=== PATIENT | female | born 1995 | race African-American/Black ===

== ENCOUNTER 2016-06-06 20:27 | Emergency (ER) | payer OTHER ==
[~2016-06-06] VITALS: Ht 160 cm; Wt 78.3 kg
[~2016-06-06 20:27] MED LIST: ACYCLOVIR400 MG PO; ACYCLOVIR800 MG PO; ADDERALL XR 3030 MG PO; ADDERALL30 MG PO; AMOXICILLIN500 MG PO; ATIVAN0.5 MG PO; CIPRO500 MG PO; CLEOCIN300 MG PO; HYDROCODON-ACE1 EAC7 PO; IBUPROFEN800 MG PO; KEFLEX500 MG PO; LABETALOL HCL100 MG PO; LEVAQUIN250 MG PO; LORAZEPAM0.5 MG PO; LORTAB 5-325 M1 EACH PO; Lab; METFORMIN HCL1000 MG PO; METOCLOPRAMIDE10 MG PO; MOTRIN600 MG PO; MOTRIN800 MG PO; NAPROSYN500 MG PO; NAPROXEN500 MG PO; NORCO 5/3251 TABLET PO; NOVOLIN N100 UNITS/ SC; NOVOLOG MI100 UNIT/4 SC; PREDNISONE20 MG PO; PRENATAL TABLE1 EAC3 PO; PROMETHAZINE HC25 M1 PO; PYRIDIUM200 MG PO; SERTRALINE HCL25 MG PO; TYLENOL WITH C1 EACH PO; ULTRAM50 MG PO; XANAX0.5 MG PO; ZOFRAN ODT4 MG PO; ZOFRAN4 MG PO; ZOLOFT100 MG PO; ZOLOFT25 MG PO; ZOLOFT50 MG PO; no home
[2016-06-06 21:24] LABS: HEMATOCRIT 38.6 % (36.0-46.0); MCH 28.8 PG (29.0-34.0); MCHC 32.9 G/DL (30.0-36.0); MCV 87.5 FL (83-99); MEAN PLAT.VOLUME 9.4 uM^3 (9.5-12.4); PLATELET COUNT 271 K/uL (156-360); RBC DIS.WIDTH-CV 13.5 % (11.8-14.6); RBC DIS.WIDTH-SD 42.5 % (39-53); RED BLOOD COUNT 4.41 M/uL (3.80-5.20); WHITE BLOOD COUNT 6.2 K/uL (4.1-10.2)
[2016-06-06 21:33] LABS: CHLORIDE 102 mEq/L (99-109); POTASSIUM 4.2 mEq/L (3.7-5.4); SODIUM 137 mEq/L (136-147)
[2016-06-06 21:34] LABS: GLUCOSE 125 mg/dL (70-99)
[2016-06-06 21:36] LABS: ANION GAP 11 MEQ/L (2-14)
[2016-06-06 21:38] LABS: GFR ESTIMATE (CALCULATED) > 59 mL/min/
[2016-06-06 21:39] LABS: UREA NITROGEN (BUN) 14 mg/dL (9-23)
[2016-06-06 21:45] LABS: TROP-I INTERPRETATION NEGATIVE; TROPONIN-I < 0.01 ng/mL (0.0-0.30)
[2016-06-06] MEDS ORDERED: MOTRIN800 MG PO (23:07)
[2016-06-06 23:26] VITALS: BP 99/42
== END 2016-06-06 23:30 | disposition home or self-care (01) ==
LOC: EME 20:27
DX: R07.89 Other chest pain (principal); F90.9 Attention-deficit hyperactivity disorder, unspecified type; Z87.440 Personal history of urinary (tract) infections
CPT/HCPCS: 71020; 80048; 84484; 85027; 93005; 99281; 99285; J1885

== ENCOUNTER 2016-06-12 03:28 | Emergency (ER) | payer OTHER ==
[~2016-06-12] VITALS: Ht 160 cm; Wt 79.2 kg
[2016-06-12 03:57] LABS: HEMATOCRIT 36.3 % (36.0-46.0); MCH 29.5 PG (29.0-34.0); MCHC 33.9 G/DL (30.0-36.0); MCV 87.1 FL (83-99); MEAN PLAT.VOLUME 9.2 uM^3 (9.5-12.4); PLATELET COUNT 265 K/uL (156-360); RBC DIS.WIDTH-CV 13.6 % (11.8-14.6); RBC DIS.WIDTH-SD 42.1 % (39-53); RED BLOOD COUNT 4.17 M/uL (3.80-5.20); WHITE BLOOD COUNT 5.6 K/uL (4.1-10.2)
[2016-06-12 04:19] LABS: CHLORIDE 104 mEq/L (99-109); POTASSIUM 4.1 mEq/L (3.7-5.4); SODIUM 138 mEq/L (136-147)
[2016-06-12 04:21] LABS: GLUCOSE 79 mg/dL (70-99)
[2016-06-12 04:22] LABS: ANION GAP 8 MEQ/L (2-14)
[2016-06-12 04:24] LABS: GFR ESTIMATE (CALCULATED) > 59 mL/min/
[2016-06-12 04:25] LABS: UREA NITROGEN (BUN) 13 mg/dL (9-23)
[2016-06-12 04:31] LABS: TROP-I INTERPRETATION NEGATIVE; TROPONIN-I < 0.01 ng/mL (0.0-0.30)
[2016-06-12 05:17] VITALS: BP 110/62
== END 2016-06-12 05:18 | disposition home or self-care (01) ==
LOC: EME 03:28
PROVIDERS: Emergency Medicine
DX: R07.9 Chest pain, unspecified (principal); F90.9 Attention-deficit hyperactivity disorder, unspecified type; Z87.440 Personal history of urinary (tract) infections
CPT/HCPCS: 71020; 80048; 83880; 84484; 85027; 86850; 86900; 86901; 93005; 99281; 99284

== ENCOUNTER 2016-06-18 15:53 | Emergency (ER) | payer OTHER ==
[~2016-06-18] VITALS: Ht 160 cm; Wt 79.4 kg
[2016-06-18 16:45] LABS: ADD MIUA? NO; BILIRUBIN NEGATIVE; BLOOD NEGATIVE; COLOR YELLOW ((YELLOW)); GLUCOSE (STRIP) NEGATIVE; KETONES NEGATIVE; LEUKOCYTES NEGATIVE; NITRITE NEGATIVE; PH, URINE 6.5 (5-8); PROTEIN (STRIP) NEGATIVE; SPECIFIC GRAVITY 1.017 (1.000-1.030); UCUL ADDED? NO
[2016-06-18 16:51] LABS: HEMATOCRIT 37.5 % (36.0-46.0); MCHC 33.9 G/DL (30.0-36.0); MCV 85.6 FL (83-99); MEAN PLAT.VOLUME 9.5 uM^3 (9.5-12.4); PLATELET COUNT 285 K/uL (156-360); RBC DIS.WIDTH-CV 13.7 % (11.8-14.6); RBC DIS.WIDTH-SD 42.4 % (39-53); RED BLOOD COUNT 4.38 M/uL (3.80-5.20); WHITE BLOOD COUNT 5.6 K/uL (4.1-10.2)
[2016-06-18 17:03] LABS: CHLORIDE 105 mEq/L (99-109); POTASSIUM 3.9 mEq/L (3.7-5.4); SODIUM 138 mEq/L (136-147)
[2016-06-18 17:05] LABS: GLUCOSE 80 mg/dL (70-99)
[2016-06-18 17:07] LABS: ANION GAP 10 MEQ/L (2-14)
[2016-06-18 17:09] LABS: ALKALINE PHOSPHATASE 65 IU/L (3-129); GFR ESTIMATE (CALCULATED) > 59 mL/min/
[2016-06-18 17:10] LABS: UREA NITROGEN (BUN) 10 mg/dL (9-23)
[2016-06-18 17:18] LABS: QUANTITATIVE HCG < 4.0 MIU/ML; TOTAL BILIRUBIN 0.3 mg/dL (0.0-1.0)
[2016-06-18 19:18] VITALS: BP 125/78
== END 2016-06-18 19:18 | disposition home or self-care (01) ==
LOC: EME 15:53
DX: R10.2 Pelvic and perineal pain (principal); Z86.19 Personal history of other infectious and parasitic diseases
CPT/HCPCS: 80053; 81003; 84702; 85027; 99281; 99284

== ENCOUNTER 2016-07-02 13:46 | Emergency (ER) | payer OTHER ==
[~2016-07-02] VITALS: Ht 160 cm; Wt 75.4 kg
[2016-07-02] MEDS ORDERED: ATIVAN2 MG PO (14:13)
[2016-07-02 14:42] LABS: HEMATOCRIT 40.1 % (36.0-46.0); MCH 29.2 PG (29.0-34.0); MCHC 33.7 G/DL (30.0-36.0); MCV 86.6 FL (83-99); MEAN PLAT.VOLUME 9.5 uM^3 (9.5-12.4); PLATELET COUNT 309 K/uL (156-360); RBC DIS.WIDTH-CV 13.9 % (11.8-14.6); RED BLOOD COUNT 4.63 M/uL (3.80-5.20); WHITE BLOOD COUNT 5.5 K/uL (4.1-10.2)
[2016-07-02 14:52] LABS: CHLORIDE 105 mEq/L (99-109); SODIUM 139 mEq/L (136-147)
[2016-07-02 14:54] LABS: GLUCOSE 97 mg/dL (70-99)
[2016-07-02 14:55] LABS: ANION GAP 7 MEQ/L (2-14)
[2016-07-02 14:56] LABS: TOTAL BILIRUBIN 0.3 mg/dL (0.0-1.0)
[2016-07-02 14:57] LABS: ALKALINE PHOSPHATASE 66 IU/L (3-129)
[2016-07-02 14:58] LABS: GFR ESTIMATE (CALCULATED) > 59 mL/min/
[2016-07-02 14:59] LABS: UREA NITROGEN (BUN) 10 mg/dL (9-23)
[2016-07-02 15:01] LABS: LIPASE 16 U/L (1.0-51.0)
[2016-07-02 15:51] LABS: QUANTITATIVE HCG < 4.0 MIU/ML
[2016-07-02 16:17] LABS: ADD MIUA? YES; BILIRUBIN NEGATIVE; BLOOD MODERATE; COLOR YELLOW ((YELLOW)); GLUCOSE (STRIP) NEGATIVE; KETONES 5; LEUKOCYTES MODERATE; NITRITE NEGATIVE; PROTEIN (STRIP) 100; SPECIFIC GRAVITY 1.035 (1.000-1.030); UROBILINOGEN 0.2 MG/DL (0.2-1.0)
[2016-07-02 16:26] LABS: BACTERIA NONE SEEN /HPF; EPITHELIAL CELLS 2+ /HPF; MUCUS 4+ /LPF; RED BLOOD CELLS TNTC /HPF (0-5); UCUL ADDED? YES; WHITE BLOOD CELLS TNTC /HPF (0-5)
[2016-07-02] MEDS ORDERED: CIPRO500 MG PO (17:05)
[2016-07-02 17:18] VITALS: BP 113/67
== END 2016-07-02 17:19 | disposition home or self-care (01) ==
LOC: EME 13:46
PROVIDERS: Nurse Practitioner Family
DX: N39.0 Urinary tract infection, site not specified (principal); B96.20 Unspecified Escherichia coli [E. coli] as the cause of diseases classified elsewhere; F31.9 Bipolar disorder, unspecified; F32.9 Major depressive disorder, single episode, unspecified; R01.1 Cardiac murmur, unspecified; Z87.891 Personal history of nicotine dependence
CPT/HCPCS: 74177; 80053; 81003; 83690; 84702; 85027; 87077; 87086; 87186; 99281; 99285; J2405; J3010; J7030

== ENCOUNTER 2016-07-23 13:59 | Emergency (ER) | payer OTHER ==
[~2016-07-23] VITALS: Ht 160 cm; Wt 78.6 kg
[~2016-07-23 13:59] MED LIST changes: +ATIVAN2 MG PO
[2016-07-23 14:06] VITALS: BP 124/65
[2016-07-23 14:55] LABS: HEMATOCRIT 36.8 % (36.0-46.0); MCH 28.8 PG (29.0-34.0); MCHC 33.4 G/DL (30.0-36.0); MCV 86.2 FL (83-99); MEAN PLAT.VOLUME 9.4 uM^3 (9.5-12.4); PLATELET COUNT 282 K/uL (156-360); RBC DIS.WIDTH-SD 43.2 % (39-53); RED BLOOD COUNT 4.27 M/uL (3.80-5.20); WHITE BLOOD COUNT 4.4 K/uL (4.1-10.2)
[2016-07-23 15:03] LABS: CHLORIDE 106 mEq/L (99-109); POTASSIUM 4.1 mEq/L (3.7-5.4); SODIUM 140 mEq/L (136-147)
[2016-07-23 15:06] LABS: GLUCOSE 78 mg/dL (70-99)
[2016-07-23 15:07] LABS: ANION GAP 7 MEQ/L (2-14)
[2016-07-23 15:08] LABS: TOTAL BILIRUBIN 0.3 mg/dL (0.0-1.0)
[2016-07-23 15:09] LABS: ALKALINE PHOSPHATASE 57 IU/L (3-129); GFR ESTIMATE (CALCULATED) > 59 mL/min/
[2016-07-23 15:10] LABS: UREA NITROGEN (BUN) 11 mg/dL (9-23)
[2016-07-23 15:14] LABS: ADD MIUA? YES; BILIRUBIN NEGATIVE; BLOOD NEGATIVE; COLOR YELLOW ((YELLOW)); GLUCOSE (STRIP) NEGATIVE; KETONES NEGATIVE; LEUKOCYTES NEGATIVE; NITRITE NEGATIVE; PROTEIN (STRIP) NEGATIVE; SPECIFIC GRAVITY 1.023 (1.000-1.030); UROBILINOGEN 0.2 MG/DL (0.2-1.0)
[2016-07-23 15:20] LABS: BACTERIA NONE SEEN /HPF; EPITHELIAL CELLS 1+ /HPF; MUCUS TRACE /LPF; RED BLOOD CELLS NONE SEEN /HPF (0-5); UCUL ADDED? NO; WHITE BLOOD CELLS 0-5 /HPF (0-5)
[2016-07-23 15:21] LABS: QUANTITATIVE HCG < 4.0 MIU/ML
== END 2016-07-23 17:51 | disposition left against medical advice (07) ==
LOC: EME 13:59
DX: R10.31 Right lower quadrant pain (principal); R11.2 Nausea with vomiting, unspecified; M54.9 Dorsalgia, unspecified; Z87.440 Personal history of urinary (tract) infections; Z87.891 Personal history of nicotine dependence
CPT/HCPCS: 80053; 81003; 84702; 85027; 87651 90; 99281; 99284

== ENCOUNTER 2016-07-28 07:56 | Emergency (ER) | payer OTHER ==
[~2016-07-28] VITALS: Ht 160 cm; Wt 78.0 kg
[2016-07-28 08:41] LABS: HEMATOCRIT 38.1 % (36.0-46.0); LYMPHOCYTE COUNT 1.9 K/uL (1.0-2.8); MCH 28.8 PG (29.0-34.0); MCHC 33.1 G/DL (30.0-36.0); MEAN PLAT.VOLUME 9.1 uM^3 (9.5-12.4); MONOCYTE (%) 13.6 % (3-12); MONOCYTE COUNT 0.5 K/uL (0-0.8); NEUTROPHIL (%) 36.4 % (45-76); NEUTROPHIL COUNT 1.4 K/uL (1.8-6.4); PLATELET COUNT 264 K/uL (156-360); RBC DIS.WIDTH-CV 14.1 % (11.8-14.6); RBC DIS.WIDTH-SD 44.2 % (39-53); RED BLOOD COUNT 4.38 M/uL (3.80-5.20); WHITE BLOOD COUNT 3.9 K/uL (4.1-10.2)
[2016-07-28 08:52] LABS: CHLORIDE 103 mEq/L (99-109); POTASSIUM 3.9 mEq/L (3.7-5.4); SODIUM 136 mEq/L (136-147)
[2016-07-28 08:54] LABS: GLUCOSE 87 mg/dL (70-99)
[2016-07-28 08:55] LABS: ANION GAP 7 MEQ/L (2-14)
[2016-07-28 08:56] LABS: TOTAL BILIRUBIN 0.3 mg/dL (0.0-1.0)
[2016-07-28 08:57] LABS: ALKALINE PHOSPHATASE 62 IU/L (3-129)
[2016-07-28 08:58] LABS: GFR ESTIMATE (CALCULATED) > 59 mL/min/
[2016-07-28 08:59] LABS: UREA NITROGEN (BUN) 14 mg/dL (9-23)
[2016-07-28 09:01] LABS: LIPASE 21 U/L (1.0-51.0)
[2016-07-28 09:07] LABS: QUANTITATIVE HCG < 4.0 MIU/ML
[2016-07-28 09:24] LABS: INFLUENZA A VIRAL ANTIGEN NEGATIVE; INFLUENZA B VIRAL ANTIGEN NEGATIVE
[2016-07-28] MEDS ORDERED: MOTRIN800 MG PO (11:58)
[2016-07-28 12:02] VITALS: BP 129/65
== END 2016-07-28 12:23 | disposition home or self-care (01) ==
LOC: EME 07:56
PROVIDERS: Emergency Medicine
DX: J06.9 Acute upper respiratory infection, unspecified (principal)
CPT/HCPCS: 71020; 80053; 83690; 84702; 85025; 87502; 87651 90; 99281; 99284; J1100

== ENCOUNTER 2016-07-31 11:47 | Emergency (ER) | payer OTHER ==
[~2016-07-31] VITALS: Ht 160 cm; Wt 77.0 kg
[2016-07-31 14:14] LABS: EOSINOPHIL (%) 0.4 % (0-5); HEMATOCRIT 39.7 % (36.0-46.0); IMMATURE GRANULOCYTE (%) 0.1 % (0.0-0.7); INSTRUMENT ABS NEUTROPHIL CT 4.4 K/uL; LYMPHOCYTE COUNT 2.2 K/uL (1.0-2.8); MCH 29.3 PG (29.0-34.0); MCV 88.8 FL (83-99); MEAN PLAT.VOLUME 9.2 uM^3 (9.5-12.4); MONOCYTE COUNT 0.6 K/uL (0-0.8); NEUTROPHIL (%) 60.3 % (45-76); NEUTROPHIL COUNT 4.4 K/uL (1.8-6.4); PLATELET COUNT 307 K/uL (156-360); RBC DIS.WIDTH-CV 14.2 % (11.8-14.6); RBC DIS.WIDTH-SD 46.5 % (39-53); RED BLOOD COUNT 4.47 M/uL (3.80-5.20)
[2016-07-31 14:17] LABS: CHLORIDE 103 mEq/L (99-109); POTASSIUM 3.6 mEq/L (3.7-5.4); SODIUM 137 mEq/L (136-147)
[2016-07-31 14:19] LABS: GLUCOSE 90 mg/dL (70-99)
[2016-07-31 14:20] LABS: ANION GAP 9 MEQ/L (2-14)
[2016-07-31 14:21] LABS: WHITE BLOOD COUNT 7.2 K/uL (4.1-10.2)
[2016-07-31 14:23] LABS: GFR ESTIMATE (CALCULATED) > 59 mL/min/; UREA NITROGEN (BUN) 12 mg/dL (9-23)
[2016-07-31 14:31] LABS: QUANTITATIVE HCG < 4.0 MIU/ML
[2016-07-31] MEDS ORDERED: TOBREX5 ML RIGHT EYE (14:59)
[2016-07-31 15:08] VITALS: BP 114/63
== END 2016-07-31 15:09 | disposition home or self-care (01) ==
LOC: EME 11:47
PROVIDERS: Emergency Medicine
DX: H10.9 Unspecified conjunctivitis (principal); N93.0 Postcoital and contact bleeding; F17.200 Nicotine dependence, unspecified, uncomplicated
CPT/HCPCS: 80048; 84702; 85025; 99281; 99283

== ENCOUNTER 2016-08-07 18:21 | Emergency (ER) | payer OTHER ==
[~2016-08-07] VITALS: Ht 160 cm; Wt 78.3 kg
[~2016-08-07 18:21] MED LIST changes: +TOBREX5 ML RIGHT EYE
[2016-08-07 19:14] LABS: ADD MIUA? NO; BILIRUBIN NEGATIVE; BLOOD NEGATIVE; COLOR YELLOW ((YELLOW)); GLUCOSE (STRIP) NEGATIVE; KETONES NEGATIVE; LEUKOCYTES NEGATIVE; NITRITE NEGATIVE; PROTEIN (STRIP) NEGATIVE; SPECIFIC GRAVITY 1.027 (1.000-1.030); UCUL ADDED? NO; UROBILINOGEN 0.2 MG/DL (0.2-1.0)
[2016-08-07 19:14] LABS: HEMATOCRIT 39.4 % (36.0-46.0); MCH 28.7 PG (29.0-34.0); MCHC 32.7 G/DL (30.0-36.0); MCV 87.6 FL (83-99); MEAN PLAT.VOLUME 9.3 uM^3 (9.5-12.4); PLATELET COUNT 342 K/uL (156-360); RBC DIS.WIDTH-CV 13.9 % (11.8-14.6); RBC DIS.WIDTH-SD 44.4 % (39-53); WHITE BLOOD COUNT 5.9 K/uL (4.1-10.2)
[2016-08-07 20:13] VITALS: BP 126/83
== END 2016-08-07 20:13 | disposition home or self-care (01) ==
LOC: EME 18:21
DX: O26.891 Other specified pregnancy related conditions, first trimester (principal); R10.2 Pelvic and perineal pain; O26.851 Spotting complicating pregnancy, first trimester; O99.331 Smoking (tobacco) complicating pregnancy, first trimester; F17.200 Nicotine dependence, unspecified, uncomplicated; Z3A.01 Less than 8 weeks gestation of pregnancy
CPT/HCPCS: 81003; 84702; 85027; 99281; 99284

== ENCOUNTER 2016-08-10 19:57 | Emergency (ER) | payer OTHER ==
[~2016-08-10] VITALS: Ht 160 cm; Wt 79.4 kg
[2016-08-10 20:59] LABS: HEMATOCRIT 35.8 % (36.0-46.0); MCH 28.7 PG (29.0-34.0); MCHC 32.7 G/DL (30.0-36.0); MCV 87.7 FL (83-99); MEAN PLAT.VOLUME 9.2 uM^3 (9.5-12.4); PLATELET COUNT 286 K/uL (156-360); RBC DIS.WIDTH-CV 13.9 % (11.8-14.6); RBC DIS.WIDTH-SD 44.8 % (39-53); RED BLOOD COUNT 4.08 M/uL (3.80-5.20); WHITE BLOOD COUNT 5.7 K/uL (4.1-10.2)
[2016-08-10 21:11] LABS: CHLORIDE 105 mEq/L (99-109); POTASSIUM 3.6 mEq/L (3.7-5.4); SODIUM 137 mEq/L (136-147)
[2016-08-10 21:13] LABS: GLUCOSE 87 mg/dL (70-99)
[2016-08-10 21:14] LABS: ANION GAP 6 MEQ/L (2-14)
[2016-08-10 21:15] LABS: TOTAL BILIRUBIN 0.2 mg/dL (0.0-1.0)
[2016-08-10 21:16] LABS: ALKALINE PHOSPHATASE 52 IU/L (3-129)
[2016-08-10 21:17] LABS: GFR ESTIMATE (CALCULATED) > 59 mL/min/
[2016-08-10 21:18] LABS: UREA NITROGEN (BUN) 9 mg/dL (9-23)
[2016-08-10 23:17] LABS: BILIRUBIN NEGATIVE; BLOOD NEGATIVE; COLOR YELLOW ((YELLOW)); GLUCOSE (STRIP) NEGATIVE; KETONES NEGATIVE; LEUKOCYTES NEGATIVE; NITRITE NEGATIVE; PROTEIN (STRIP) NEGATIVE; SPECIFIC GRAVITY 1.025 (1.000-1.030); UROBILINOGEN 0.2 MG/DL (0.2-1.0)
[2016-08-10 23:21] LABS: ADD MIUA? NO; UCUL ADDED? NO
[2016-08-10 23:43] VITALS: BP 127/82
== END 2016-08-10 23:44 | disposition home or self-care (01) ==
LOC: EME 19:57
DX: O99.89 Other specified diseases and conditions complicating pregnancy, childbirth and the puerperium (principal); R10.31 Right lower quadrant pain; O99.341 Other mental disorders complicating pregnancy, first trimester; F31.9 Bipolar disorder, unspecified; F41.9 Anxiety disorder, unspecified; F43.10 Post-traumatic stress disorder, unspecified; O99.331 Smoking (tobacco) complicating pregnancy, first trimester; F17.200 Nicotine dependence, unspecified, uncomplicated; Z3A.01 Less than 8 weeks gestation of pregnancy
CPT/HCPCS: 76801; 80053; 81003; 84702; 85027; 99281; 99284

== ENCOUNTER 2016-09-21 03:08 | Emergency (ER) | payer OTHER ==
[~2016-09-21] VITALS: Ht 160 cm; Wt 77.2 kg
[2016-09-21 04:38] VITALS: BP 137/73
== END 2016-09-21 04:43 | disposition home or self-care (01) ==
LOC: EME 03:08
DX: O9A.211 Injury, poisoning and certain other consequences of external causes complicating pregnancy, first trimester (principal); S63.501A Unspecified sprain of right wrist, initial encounter; Y04.2XXA Assault by strike against or bumped into by another person, initial encounter; O99.89 Other specified diseases and conditions complicating pregnancy, childbirth and the puerperium; R10.9 Unspecified abdominal pain; Z3A.10 10 weeks gestation of pregnancy
CPT/HCPCS: 73110; 99281; 99284

== ENCOUNTER 2017-03-05 11:12 | Emergency (ER) | payer OTHER ==
[~2017-03-05] VITALS: Ht 160 cm; Wt 84.5 kg
[2017-03-05 13:51] LABS: INFLUENZA A VIRAL ANTIGEN NEGATIVE; INFLUENZA B VIRAL ANTIGEN NEGATIVE
[2017-03-05] MEDS ORDERED: ZITHROMAX Z-PA250 MG PO (14:32)
[2017-03-05] MEDS ORDERED: PROVENTIL HFA6.7 GM IH (14:32)
[2017-03-05] MEDS ORDERED: ROBITUSSIN DM118 ML PO (14:32)
[2017-03-05 14:53] VITALS: BP 124/72
== END 2017-03-05 14:53 | disposition home or self-care (01) ==
LOC: EME 11:12
PROVIDERS: Emergency Medicine
DX: O99.513 Diseases of the respiratory system complicating pregnancy, third trimester (principal); J06.9 Acute upper respiratory infection, unspecified; J40 Bronchitis, not specified as acute or chronic; Z3A.34 34 weeks gestation of pregnancy
CPT/HCPCS: 87502; 99281; 99284

== ENCOUNTER 2017-03-08 21:29 | Emergency (ER) | payer OTHER ==
[~2017-03-08] VITALS: Ht 160 cm; Wt 84.6 kg
[~2017-03-08 21:29] MED LIST changes: +PROVENTIL HFA6.7 GM IH; +ROBITUSSIN DM118 ML PO; +ZITHROMAX Z-PA250 MG PO
[2017-03-08] MEDS ORDERED: CEFDINIR300 MG PO (22:23)
[2017-03-08 22:35] VITALS: BP 98/56
== END 2017-03-08 22:36 | disposition home or self-care (01) ==
LOC: EME 21:29
DX: R07.9 Chest pain, unspecified (principal); T36.3X5A Adverse effect of macrolides, initial encounter; J40 Bronchitis, not specified as acute or chronic; F32.9 Major depressive disorder, single episode, unspecified; F41.9 Anxiety disorder, unspecified; F90.9 Attention-deficit hyperactivity disorder, unspecified type; F43.10 Post-traumatic stress disorder, unspecified; Z87.440 Personal history of urinary (tract) infections; Z87.891 Personal history of nicotine dependence
CPT/HCPCS: 99281; 99284

== ENCOUNTER 2017-03-13 15:45 | Outpatient (CLI) | payer OTHER ==
[~2017-03-13] VITALS: Ht 160 cm; Wt 85.0 kg
[~2017-03-13 15:45] MED LIST changes: +CEFDINIR300 MG PO
[2017-03-13 15:58] VITALS: BP 133/81
[2017-03-13] MEDS ORDERED: IRON325 M1 PO (16:27)
[2017-03-13] MEDS ORDERED: VALTREX50 MG/ML PO (16:28)
[2017-03-13 18:49] VITALS: BP 116/55
== END 2017-03-13 19:00 | disposition home or self-care (01) ==
LOC: LDRP-OP → 2WEST 15:47 → LDRP-OP 05-14 14:29
DX: O26.893 Other specified pregnancy related conditions, third trimester (principal); R06.02 Shortness of breath; R07.89 Other chest pain; M54.9 Dorsalgia, unspecified; Z86.19 Personal history of other infectious and parasitic diseases; O99.343 Other mental disorders complicating pregnancy, third trimester; F43.10 Post-traumatic stress disorder, unspecified; O98.513 Other viral diseases complicating pregnancy, third trimester; B00.9 Herpesviral infection, unspecified; Z3A.35 35 weeks gestation of pregnancy; Z87.891 Personal history of nicotine dependence
CPT/HCPCS: 59025; 81003; 87086; G0378; J0702; J7120

== ENCOUNTER 2017-03-14 16:39 | Outpatient (CLI) | payer OTHER ==
[~2017-03-14 16:39] MED LIST changes: +IRON325 M1 PO; +VALTREX50 MG/ML PO
[2017-03-14 16:55] VITALS: BP 112/59
== END 2017-03-14 18:05 | disposition home or self-care (01) ==
LOC: LDRP-OP 16:39 → 2WEST 16:40 → LDRP-OP 21:53
DX: O26.893 Other specified pregnancy related conditions, third trimester (principal); Z3A.35 35 weeks gestation of pregnancy
CPT/HCPCS: 59025; G0378; J0702

== ENCOUNTER 2017-03-15 14:38 | Outpatient (CLI) | payer OTHER ==
[2017-03-15 14:59] VITALS: BP 126/61
== END 2017-03-15 17:35 | disposition home or self-care (01) ==
LOC: LDRP-OP 14:38 → 2WEST 14:40 → LDRP-OP 05-14 18:32
DX: O26.893 Other specified pregnancy related conditions, third trimester (principal); Z3A.35 35 weeks gestation of pregnancy; R10.9 Unspecified abdominal pain; R19.7 Diarrhea, unspecified; O99.343 Other mental disorders complicating pregnancy, third trimester; F41.8 Other specified anxiety disorders; Z87.891 Personal history of nicotine dependence
CPT/HCPCS: 59025; 87081; G0378

== ENCOUNTER 2017-04-07 07:15 | Inpatient (IN) | payer OTHER ==
[2017-04-07] VITALS (33 sets, daily range): BP systolic 108–156; BP diastolic 55–87
[~2017-04-07] VITALS: Ht 160 cm; Wt 87.0 kg
[2017-04-07 09:20] LABS: EOSINOPHIL (%) 1.2 % (0-5); EOSINOPHIL COUNT 0.1 K/uL (0-0.3); HEMATOCRIT 30.3 % (36.0-46.0); IMMATURE GRANULOCYTE (%) 0.2 % (0.0-0.7); INSTRUMENT ABS NEUTROPHIL CT 2.8 K/uL; LYMPHOCYTE COUNT 1.7 K/uL (1.0-2.8); MCHC 33.7 G/DL (30.0-36.0); MCV 89.1 FL (83-99); MEAN PLAT.VOLUME 10.1 uM^3 (9.5-12.4); MONOCYTE (%) 8.3 % (3-12); MONOCYTE COUNT 0.4 K/uL (0-0.8); NEUTROPHIL (%) 55.8 % (45-76); NEUTROPHIL COUNT 2.8 K/uL (1.8-6.4); RBC DIS.WIDTH-CV 12.8 % (11.8-14.6); RBC DIS.WIDTH-SD 41.1 % (39-53)
[2017-04-07 09:25] LABS: PLATELET COUNT 192 K/uL (156-360)
[2017-04-08 07:18] LABS: EOSINOPHIL (%) 0.6 % (0-5); EOSINOPHIL COUNT 0.1 K/uL (0-0.3); HEMATOCRIT 28.1 % (36.0-46.0); IMMATURE GRANULOCYTE (%) 0.4 % (0.0-0.7); INSTRUMENT ABS NEUTROPHIL CT 5.7 K/uL; MCH 30.7 PG (29.0-34.0); MCHC 33.8 G/DL (30.0-36.0); MCV 90.9 FL (83-99); MEAN PLAT.VOLUME 10.7 uM^3 (9.5-12.4); MONOCYTE (%) 6.8 % (3-12); MONOCYTE COUNT 0.6 K/uL (0-0.8); NEUTROPHIL (%) 67.8 % (45-76); NEUTROPHIL COUNT 5.7 K/uL (1.8-6.4); PLATELET COUNT 183 K/uL (156-360); RBC DIS.WIDTH-CV 13.1 % (11.8-14.6); RBC DIS.WIDTH-SD 42.1 % (39-53); RED BLOOD COUNT 3.09 M/uL (3.80-5.20); WHITE BLOOD COUNT 8.4 K/uL (4.1-10.2)
[2017-04-08 07:22] VITALS: BP 108/54
[2017-04-08 15:07] VITALS: BP 129/67
[2017-04-08 21:21] VITALS: BP 120/66
[2017-04-09 08:13] VITALS: BP 111/54
[2017-04-09] MEDS ORDERED: IBUPROFEN800 MG PO (10:27)
== END 2017-04-09 12:02 | disposition home or self-care (01) | DRG 775 ==
LOC: LDRP-OP 07:15 → 2WEST 07:17 → LDRP-OP 14:25 → 2WEST 19:23 → LDRP-OP 05-14 18:47
PROVIDERS: Advanced Practice Midwife
PROC: 10907ZC Drainage of Amniotic Fluid, Therapeutic from Products of Conception, Via Natural or Artificial Opening (ICD-10-PCS; principal; 2017-04-07)
PROC: 0U7C7ZZ Dilation of Cervix, Via Natural or Artificial Opening (ICD-10-PCS; principal; 2017-04-07)
PROC: 00HU33Z Insertion of Infusion Device into Spinal Canal, Percutaneous Approach (ICD-10-PCS; principal; 2017-04-07)
PROC: 3E0P3VZ Introduction of Hormone into Female Reproductive, Percutaneous Approach (ICD-10-PCS; principal; 2017-04-07)
PROC: 10E0XZZ Delivery of Products of Conception, External Approach (ICD-10-PCS; principal; 2017-04-07)
PROC: 3E0R3BZ Introduction of Anesthetic Agent into Spinal Canal, Percutaneous Approach (ICD-10-PCS; principal; 2017-04-07)
DX: O99.214 Obesity complicating childbirth (principal); O99.02 Anemia complicating childbirth; O99.344 Other mental disorders complicating childbirth; Z68.30 Body mass index [BMI] 30.0-30.9, adult; F41.8 Other specified anxiety disorders; D50.9 Iron deficiency anemia, unspecified; E66.9 Obesity, unspecified; F41.9 Anxiety disorder, unspecified; O99.340 Other mental disorders complicating pregnancy, unspecified trimester; Z3A.39 39 weeks gestation of pregnancy; Z37.0 Single live birth
CPT/HCPCS: 85025; C1755; J0595; J3010; J7120; S0020

== ENCOUNTER 2017-06-08 19:22 | Emergency (ER) | payer OTHER ==
[~2017-06-08] VITALS: Ht 160 cm; Wt 83.7 kg
[2017-06-08 20:13] LABS: HEMATOCRIT 37.4 % (36.0-46.0); HEMOGLOBIN 12.5 G/DL (11.9-15.5); MCH 29.3 PG (29.0-34.0); MCHC 33.4 G/DL (30.0-36.0); MCV 87.8 FL (83-99); PLATELET COUNT 342 K/uL (156-360); RBC DIS.WIDTH-CV 13.3 % (11.8-14.6); RBC DIS.WIDTH-SD 42.4 % (39-53); RED BLOOD COUNT 4.26 M/uL (3.80-5.20); WHITE BLOOD COUNT 4.8 K/uL (4.1-10.2)
[2017-06-08 20:34] LABS: CHLORIDE 105 mEq/L (99-109); POTASSIUM 3.9 mEq/L (3.7-5.4); SODIUM 138 mEq/L (136-147)
[2017-06-08 20:36] LABS: GLUCOSE 84 mg/dL (70-99)
[2017-06-08 20:39] LABS: CREATININE 0.7 mg/dL (0.6-1.3); GFR ESTIMATE (CALCULATED) > 59 mL/min/
[2017-06-08 20:40] LABS: UREA NITROGEN (BUN) 13 mg/dL (9-23)
[2017-06-08 20:45] LABS: TROP-I INTERPRETATION NEGATIVE; TROPONIN-I < 0.01 ng/mL (0.0-0.30)
[2017-06-08 22:55] VITALS: BP 127/78
== END 2017-06-08 22:56 | disposition home or self-care (01) ==
LOC: EME 19:22 → EXP 19:22
DX: R07.9 Chest pain, unspecified (principal); M79.662 Pain in left lower leg; R11.0 Nausea; Z87.440 Personal history of urinary (tract) infections; Z87.891 Personal history of nicotine dependence
CPT/HCPCS: 71046; 80048; 84484; 85027; 93005; 99281; 99283

== ENCOUNTER 2017-06-20 13:54 | Emergency (ER) | payer OTHER ==
[~2017-06-20] VITALS: Ht 160 cm; Wt 85.7 kg
[2017-06-20 14:14] LABS: HEMATOCRIT 36.6 % (36.0-46.0); HEMOGLOBIN 12.3 G/DL (11.9-15.5); MCH 29.5 PG (29.0-34.0); MCHC 33.6 G/DL (30.0-36.0); MCV 87.8 FL (83-99); PLATELET COUNT 273 K/uL (156-360); RBC DIS.WIDTH-CV 13.4 % (11.8-14.6); RBC DIS.WIDTH-SD 43.3 % (39-53); RED BLOOD COUNT 4.17 M/uL (3.80-5.20); WHITE BLOOD COUNT 5.4 K/uL (4.1-10.2)
[2017-06-20 14:21] LABS: ALBUMIN 3.9 g/dL (3.2-4.8)
[2017-06-20 14:22] LABS: CHLORIDE 102 mEq/L (99-109); POTASSIUM 3.8 mEq/L (3.7-5.4); SODIUM 136 mEq/L (136-147)
[2017-06-20 14:24] LABS: GLUCOSE 97 mg/dL (70-99); TOTAL PROTEIN 7.6 g/dL (6.4-8.3)
[2017-06-20 14:26] LABS: TOTAL BILIRUBIN 0.2 mg/dL (0.0-1.0)
[2017-06-20 14:27] LABS: ALKALINE PHOSPHATASE 70 IU/L (3-129)
[2017-06-20 14:28] LABS: CREATININE 0.8 mg/dL (0.6-1.3); GFR ESTIMATE (CALCULATED) > 59 mL/min/
[2017-06-20 14:29] LABS: AST (GOT) 21 IU/L (2-34); UREA NITROGEN (BUN) 13 mg/dL (9-23)
[2017-06-20 14:31] LABS: ALT (GPT) 29 IU/L (3-49)
[2017-06-20 14:37] LABS: QUANTITATIVE HCG < 4.0 MIU/ML
[2017-06-20 14:50] LABS: APPEARANCE CLEAR ((CLEAR)); BILIRUBIN NEGATIVE; BLOOD NEGATIVE; COLOR YELLOW ((YELLOW)); GLUCOSE (STRIP) NEGATIVE; KETONES NEGATIVE; LEUKOCYTES NEGATIVE; NITRITE NEGATIVE; PROTEIN (STRIP) NEGATIVE; SPECIFIC GRAVITY 1.027 (1.000-1.030); UCUL ADDED? NO; UROBILINOGEN 0.2 MG/DL (0.2-1.0)
[2017-06-20] MEDS ORDERED: ZOFRAN ODT8 MG PO (16:50)
[2017-06-20 17:13] VITALS: BP 124/68
== END 2017-06-20 17:14 | disposition home or self-care (01) ==
LOC: EME 13:54
DX: R10.2 Pelvic and perineal pain (principal); F90.9 Attention-deficit hyperactivity disorder, unspecified type; F43.10 Post-traumatic stress disorder, unspecified; F32.9 Major depressive disorder, single episode, unspecified; F41.9 Anxiety disorder, unspecified; Z87.440 Personal history of urinary (tract) infections
CPT/HCPCS: 80053; 81003; 84702; 85027; 87491; 87591; 99281; 99283

== ENCOUNTER 2017-07-28 13:49 | Emergency (ER) | payer OTHER ==
[~2017-07-28] VITALS: Ht 160 cm; Wt 87.2 kg
[~2017-07-28 13:49] MED LIST changes: +ZOFRAN ODT8 MG PO
[2017-07-28 16:18] LABS: HEMATOCRIT 37.9 % (36.0-46.0); HEMOGLOBIN 12.8 G/DL (11.9-15.5); MCH 29.4 PG (29.0-34.0); MCHC 33.8 G/DL (30.0-36.0); MCV 86.9 FL (83-99); PLATELET COUNT 331 K/uL (156-360); RBC DIS.WIDTH-SD 41.4 % (39-53); RED BLOOD COUNT 4.36 M/uL (3.80-5.20); WHITE BLOOD COUNT 4.8 K/uL (4.1-10.2)
[2017-07-28 16:30] LABS: CHLORIDE 105 mEq/L (99-109); POTASSIUM 3.8 mEq/L (3.7-5.4); SODIUM 140 mEq/L (136-147)
[2017-07-28 16:31] LABS: GLUCOSE 112 mg/dL (70-99)
[2017-07-28 16:35] LABS: CREATININE 0.7 mg/dL (0.6-1.3); GFR ESTIMATE (CALCULATED) > 59 mL/min/
[2017-07-28 16:36] LABS: UREA NITROGEN (BUN) 12 mg/dL (9-23)
[2017-07-28 16:47] LABS: TROP-I INTERPRETATION NEGATIVE; TROPONIN-I < 0.01 ng/mL (0.0-0.30)
[2017-07-28 16:48] LABS: QUANTITATIVE HCG < 4.0 MIU/ML
[2017-07-28 17:33] VITALS: BP 118/65
[2017-07-29] MEDS ORDERED: FLONASE16 G1 BOTH NARES (22:58)
[2017-07-29] MEDS ORDERED: PREDNISONE20 MG PO (22:58)
[2017-07-29] MEDS ORDERED: FIORICET 50-301 EAC1 PO (22:58)
[2017-07-29] MEDS ORDERED: MUCINEX D ER T1 EACH PO (22:58)
[2017-07-29] MEDS ORDERED: VIBRAMYCIN100 MG PO (22:58)
== END 2017-07-28 17:34 | disposition home or self-care (01) ==
LOC: EME 13:49
PROVIDERS: Physician Assistant Medical
DX: R07.9 Chest pain, unspecified (principal); F32.9 Major depressive disorder, single episode, unspecified; F90.9 Attention-deficit hyperactivity disorder, unspecified type; F43.10 Post-traumatic stress disorder, unspecified; Z87.440 Personal history of urinary (tract) infections
CPT/HCPCS: 71046; 80048; 84484; 84702; 85027; 93005; 99281; 99284

== ENCOUNTER 2017-07-29 22:27 | Emergency (ER) | payer OTHER ==
[~2017-07-29] VITALS: Ht 160 cm; Wt 87.4 kg
[2017-07-29] MEDS ORDERED: FIORICET 50-301 EAC1 PO (22:58)
[2017-07-29] MEDS ORDERED: PREDNISONE20 MG PO (22:58)
[2017-07-29] MEDS ORDERED: VIBRAMYCIN100 MG PO (22:58)
[2017-07-29] MEDS ORDERED: MUCINEX D ER T1 EACH PO (22:58)
[2017-07-29] MEDS ORDERED: FLONASE16 G1 BOTH NARES (22:58)
[2017-07-30 00:06] VITALS: BP 123/68
[2017-07-30] MEDS ORDERED: AMBIEN10 MG PO (19:55)
[2017-07-30] MEDS ORDERED: FLEXERIL10 MG PO (19:55)
== END 2017-07-30 00:12 | disposition home or self-care (01) ==
LOC: EME 22:27
DX: J01.90 Acute sinusitis, unspecified (principal); H65.03 Acute serous otitis media, bilateral; F32.9 Major depressive disorder, single episode, unspecified; F43.10 Post-traumatic stress disorder, unspecified; F31.9 Bipolar disorder, unspecified; F90.9 Attention-deficit hyperactivity disorder, unspecified type; Z87.440 Personal history of urinary (tract) infections
CPT/HCPCS: 99281; 99284; J7512

== ENCOUNTER 2017-07-30 19:04 | Emergency (ER) | payer OTHER ==
[~2017-07-30] VITALS: Ht 160 cm; Wt 82.5 kg
[~2017-07-30 19:04] MED LIST changes: +FIORICET 50-301 EAC1 PO; +FLONASE16 G1 BOTH NARES; +MUCINEX D ER T1 EACH PO; +VIBRAMYCIN100 MG PO
[2017-07-30] MEDS ORDERED: FLEXERIL10 MG PO (19:55)
[2017-07-30] MEDS ORDERED: AMBIEN10 MG PO (19:55)
[2017-07-30 20:29] VITALS: BP 129/76
== END 2017-07-30 20:29 | disposition home or self-care (01) ==
LOC: EME 19:04
DX: B34.9 Viral infection, unspecified (principal); J32.9 Chronic sinusitis, unspecified; G62.9 Polyneuropathy, unspecified; G47.00 Insomnia, unspecified; F43.9 Reaction to severe stress, unspecified
CPT/HCPCS: 99281; 99283

== ENCOUNTER 2017-08-13 15:55 | Emergency (ER) | payer OTHER ==
[~2017-08-13] VITALS: Ht 160 cm; Wt 87.9 kg
[~2017-08-13 15:55] MED LIST changes: +AMBIEN10 MG PO; +FLEXERIL10 MG PO
[2017-08-13 18:42] LABS: HEMATOCRIT 38.4 % (36.0-46.0); HEMOGLOBIN 12.8 G/DL (11.9-15.5); MCH 29.2 PG (29.0-34.0); MCHC 33.3 G/DL (30.0-36.0); MCV 87.7 FL (83-99); PLATELET COUNT 303 K/uL (156-360); RBC DIS.WIDTH-SD 41.6 % (39-53); RED BLOOD COUNT 4.38 M/uL (3.80-5.20); WHITE BLOOD COUNT 5.1 K/uL (4.1-10.2)
[2017-08-13 18:56] LABS: CHLORIDE 104 mEq/L (99-109); POTASSIUM 4.1 mEq/L (3.7-5.4); SODIUM 139 mEq/L (136-147)
[2017-08-13 18:58] LABS: GLUCOSE 84 mg/dL (70-99)
[2017-08-13 19:01] LABS: CREATININE 0.7 mg/dL (0.6-1.3); GFR ESTIMATE (CALCULATED) > 59 mL/min/
[2017-08-13 19:02] LABS: UREA NITROGEN (BUN) 12 mg/dL (9-23)
[2017-08-13 19:09] LABS: QUANTITATIVE HCG < 4.0 MIU/ML
[2017-08-13 19:10] LABS: TROP-I INTERPRETATION NEGATIVE; TROPONIN-I < 0.01 ng/mL (0.0-0.30)
[2017-08-13 22:55] LABS: TROP-I INTERPRETATION NEGATIVE; TROPONIN-I < 0.01 ng/mL (0.0-0.30)
[2017-08-13 23:48] VITALS: BP 122/80
== END 2017-08-13 23:50 | disposition home or self-care (01) ==
LOC: EME 15:55
PROVIDERS: Physician Assistant
DX: R07.89 Other chest pain (principal); I49.3 Ventricular premature depolarization; F32.9 Major depressive disorder, single episode, unspecified; F41.9 Anxiety disorder, unspecified; F90.9 Attention-deficit hyperactivity disorder, unspecified type; F43.10 Post-traumatic stress disorder, unspecified; Z86.79 Personal history of other diseases of the circulatory system
CPT/HCPCS: 71046; 80048; 84484; 84702; 85027; 90839; 93005; 99281; 99284

== ENCOUNTER 2017-08-30 12:19 | Emergency (ER) | payer OTHER ==
[~2017-08-30] VITALS: Ht 160 cm; Wt 87.2 kg
[2017-08-30 12:59] LABS: APPEARANCE SL.HAZY ((CLEAR)); BILIRUBIN NEGATIVE; BLOOD NEGATIVE; COLOR YELLOW ((YELLOW)); GLUCOSE (STRIP) NEGATIVE; KETONES NEGATIVE; LEUKOCYTES NEGATIVE; NITRITE NEGATIVE; PROTEIN (STRIP) 30
[2017-08-30 13:07] LABS: BACTERIA RARE /HPF; CALCIUM OXALATE CRYSTALS 2+ /HPF; EPITHELIAL CELLS 1+ /HPF; MUCUS 1+ /LPF; RED BLOOD CELLS 0-5 /HPF (0-5); UCUL ADDED? NO; WHITE BLOOD CELLS 0-5 /HPF (0-5)
[2017-08-30 13:35] LABS: HEMATOCRIT 38.8 % (36.0-46.0); HEMOGLOBIN 12.9 G/DL (11.9-15.5); MCH 29.1 PG (29.0-34.0); MCHC 33.2 G/DL (30.0-36.0); MCV 87.4 FL (83-99); PLATELET COUNT 340 K/uL (156-360); RBC DIS.WIDTH-CV 12.8 % (11.8-14.6); RBC DIS.WIDTH-SD 41.1 % (39-53); RED BLOOD COUNT 4.44 M/uL (3.80-5.20); WHITE BLOOD COUNT 3.7 K/uL (4.1-10.2)
[2017-08-30 13:44] LABS: ALBUMIN 4.1 g/dL (3.2-4.8); CHLORIDE 104 mEq/L (99-109); POTASSIUM 4.1 mEq/L (3.7-5.4); SODIUM 141 mEq/L (136-147)
[2017-08-30 13:47] LABS: GLUCOSE 81 mg/dL (70-99); TOTAL PROTEIN 7.9 g/dL (6.4-8.3)
[2017-08-30 13:49] LABS: TOTAL BILIRUBIN 0.2 mg/dL (0.0-1.0)
[2017-08-30 13:50] LABS: ALKALINE PHOSPHATASE 70 IU/L (3-129); CREATININE 0.8 mg/dL (0.6-1.3); GFR ESTIMATE (CALCULATED) > 59 mL/min/
[2017-08-30 13:51] LABS: UREA NITROGEN (BUN) 11 mg/dL (9-23)
[2017-08-30 13:52] LABS: AST (GOT) 20 IU/L (2-34)
[2017-08-30 13:53] LABS: ALT (GPT) 22 IU/L (3-49)
[2017-08-30 14:01] LABS: QUANTITATIVE HCG < 4.0 MIU/ML
[2017-08-30 15:42] VITALS: BP 121/70
== END 2017-08-30 15:43 | disposition home or self-care (01) ==
LOC: EME 12:19
DX: R11.2 Nausea with vomiting, unspecified (principal); R10.9 Unspecified abdominal pain; F31.9 Bipolar disorder, unspecified; F90.9 Attention-deficit hyperactivity disorder, unspecified type; F32.9 Major depressive disorder, single episode, unspecified; F41.9 Anxiety disorder, unspecified; Z87.440 Personal history of urinary (tract) infections
CPT/HCPCS: 80053; 81003; 84702; 85027; 99281; 99282

== ENCOUNTER 2017-10-03 13:27 | Emergency (ER) | payer OTHER ==
[~2017-10-03] VITALS: Ht 160 cm; Wt 89.6 kg
[2017-10-03 14:39] LABS: HEMOGLOBIN 12.8 G/DL (11.9-15.5); MCH 29.1 PG (29.0-34.0); MCHC 33.7 G/DL (30.0-36.0); MCV 86.4 FL (83-99); PLATELET COUNT 341 K/uL (156-360); RBC DIS.WIDTH-CV 13.3 % (11.8-14.6); RBC DIS.WIDTH-SD 41.8 % (39-53); WHITE BLOOD COUNT 5.3 K/uL (4.1-10.2)
[2017-10-03 14:51] LABS: CHLORIDE 103 mEq/L (99-109); POTASSIUM 4.3 mEq/L (3.7-5.4); SODIUM 138 mEq/L (136-147)
[2017-10-03 14:52] LABS: GLUCOSE 77 mg/dL (70-99)
[2017-10-03 14:56] LABS: CREATININE 0.8 mg/dL (0.6-1.3); GFR ESTIMATE (CALCULATED) > 59 mL/min/
[2017-10-03 14:57] LABS: UREA NITROGEN (BUN) 9 mg/dL (9-23)
[2017-10-03 15:04] LABS: QUANTITATIVE HCG < 4.0 MIU/ML
[2017-10-03 15:05] LABS: TROP-I INTERPRETATION NEGATIVE; TROPONIN-I < 0.01 ng/mL (0.0-0.30)
[2017-10-03 18:14] LABS: TROP-I INTERPRETATION NEGATIVE; TROPONIN-I < 0.01 ng/mL (0.0-0.30)
[2017-10-03 19:10] VITALS: BP 105/64
== END 2017-10-03 19:10 | disposition home or self-care (01) ==
LOC: EME 13:27
PROVIDERS: Physician Assistant
DX: R07.9 Chest pain, unspecified (principal); I49.3 Ventricular premature depolarization; F31.9 Bipolar disorder, unspecified; F32.9 Major depressive disorder, single episode, unspecified; F41.9 Anxiety disorder, unspecified; F90.9 Attention-deficit hyperactivity disorder, unspecified type; Z87.440 Personal history of urinary (tract) infections
CPT/HCPCS: 71046; 80048; 84484; 84702; 85027; 93005; 99281; 99285

== ENCOUNTER 2017-11-19 21:07 | Emergency (ER) | payer OTHER ==
[~2017-11-19] VITALS: Ht 160 cm; Wt 86.5 kg
[2017-11-20 00:21] LABS: APPEARANCE CLEAR ((CLEAR)); BILIRUBIN NEGATIVE; BLOOD NEGATIVE; COLOR YELLOW ((YELLOW)); GLUCOSE (STRIP) NEGATIVE; KETONES NEGATIVE; LEUKOCYTES NEGATIVE; NITRITE POSITIVE; PROTEIN (STRIP) NEGATIVE; SPECIFIC GRAVITY 1.031 (1.000-1.030)
[2017-11-20 00:25] LABS: BACTERIA 3+ /HPF; EPITHELIAL CELLS RARE /HPF; MUCUS 1+ /LPF; RED BLOOD CELLS 0-5 /HPF (0-5); UCUL ADDED? YES; WHITE BLOOD CELLS 0-5 /HPF (0-5)
[2017-11-20 00:51] LABS: HEMATOCRIT 36.2 % (36.0-46.0); HEMOGLOBIN 12.1 G/DL (11.9-15.5); MCH 29.2 PG (29.0-34.0); MCHC 33.4 G/DL (30.0-36.0); MCV 87.4 FL (83-99); PLATELET COUNT 332 K/uL (156-360); RBC DIS.WIDTH-CV 14.1 % (11.8-14.6); RBC DIS.WIDTH-SD 45.3 % (39-53); RED BLOOD COUNT 4.14 M/uL (3.80-5.20); WHITE BLOOD COUNT 5.9 K/uL (4.1-10.2)
[2017-11-20] MEDS ORDERED: KEFLEX500 MG PO (01:01)
[2017-11-20] MEDS ORDERED: ZOFRAN4 MG PO (01:02)
[2017-11-20] MEDS ORDERED: MOTRIN800 MG PO (01:02)
[2017-11-20 01:06] LABS: ALBUMIN 3.7 g/dL (3.2-4.8)
[2017-11-20 01:07] LABS: CHLORIDE 103 mEq/L (99-109); POTASSIUM 3.9 mEq/L (3.7-5.4); SODIUM 140 mEq/L (136-147)
[2017-11-20 01:09] LABS: GLUCOSE 107 mg/dL (70-99); TOTAL PROTEIN 7.3 g/dL (6.4-8.3)
[2017-11-20 01:11] LABS: TOTAL BILIRUBIN 0.2 mg/dL (0.0-1.0)
[2017-11-20 01:12] LABS: ALKALINE PHOSPHATASE 64 IU/L (3-129)
[2017-11-20 01:13] LABS: CREATININE 0.9 mg/dL (0.6-1.3); GFR ESTIMATE (CALCULATED) > 59 mL/min/
[2017-11-20 01:14] LABS: AST (GOT) 15 IU/L (2-34); UREA NITROGEN (BUN) 13 mg/dL (9-23)
[2017-11-20 01:15] LABS: ALT (GPT) 10 IU/L (3-49)
[2017-11-20 01:16] LABS: LIPASE 32 U/L (1.0-51.0)
[2017-11-20 01:27] LABS: QUANTITATIVE HCG < 4.0 MIU/ML
[2017-11-20 02:03] VITALS: BP 114/75
== END 2017-11-20 02:04 | disposition home or self-care (01) ==
LOC: EME 21:07
DX: N39.0 Urinary tract infection, site not specified (principal); R11.2 Nausea with vomiting, unspecified; J02.9 Acute pharyngitis, unspecified; Z87.440 Personal history of urinary (tract) infections; F32.9 Major depressive disorder, single episode, unspecified; F43.10 Post-traumatic stress disorder, unspecified; F90.9 Attention-deficit hyperactivity disorder, unspecified type
CPT/HCPCS: 80053; 81003; 83690; 84702; 85027; 87077; 87081; 87086; 87186; 87651 90; 99281; 99284

== ENCOUNTER 2017-11-29 11:03 | Emergency (ER) | payer OTHER ==
[~2017-11-29] VITALS: Ht 160 cm; Wt 85.5 kg
[2017-11-29 11:06] VITALS: BP 100/65
[2017-11-29 11:29] LABS: HEMATOCRIT 39.5 % (36.0-46.0); HEMOGLOBIN 13.2 G/DL (11.9-15.5); MCH 28.8 PG (29.0-34.0); MCHC 33.4 G/DL (30.0-36.0); MCV 86.2 FL (83-99); PLATELET COUNT 306 K/uL (156-360); RBC DIS.WIDTH-CV 13.9 % (11.8-14.6); RBC DIS.WIDTH-SD 43.4 % (39-53); RED BLOOD COUNT 4.58 M/uL (3.80-5.20); WHITE BLOOD COUNT 4.6 K/uL (4.1-10.2)
[2017-11-29 11:36] LABS: CHLORIDE 104 mEq/L (99-109); POTASSIUM 4.1 mEq/L (3.7-5.4); SODIUM 137 mEq/L (136-147)
[2017-11-29 11:38] LABS: GLUCOSE 91 mg/dL (70-99); TOTAL PROTEIN 7.7 g/dL (6.4-8.3)
[2017-11-29 11:40] LABS: TOTAL BILIRUBIN 0.3 mg/dL (0.0-1.0)
[2017-11-29 11:42] LABS: ALKALINE PHOSPHATASE 62 IU/L (3-129); CREATININE 0.8 mg/dL (0.6-1.3); GFR ESTIMATE (CALCULATED) > 59 mL/min/
[2017-11-29 11:43] LABS: UREA NITROGEN (BUN) 9 mg/dL (9-23)
[2017-11-29 11:44] LABS: AST (GOT) 15 IU/L (2-34)
[2017-11-29 11:45] LABS: ALT (GPT) 12 IU/L (3-49)
[2017-11-29 11:49] LABS: APPEARANCE SL.HAZY ((CLEAR)); BILIRUBIN NEGATIVE; BLOOD NEGATIVE; COLOR YELLOW ((YELLOW)); GLUCOSE (STRIP) NEGATIVE; KETONES NEGATIVE; LEUKOCYTES MODERATE; NITRITE NEGATIVE; PROTEIN (STRIP) 30; SPECIFIC GRAVITY 1.025 (1.000-1.030); UROBILINOGEN 0.2 MG/DL (0.2-1.0)
[2017-11-29 11:50] LABS: QUANTITATIVE HCG < 4.0 MIU/ML
[2017-11-29 11:59] LABS: BACTERIA RARE /HPF; EPITHELIAL CELLS 2+ /HPF; MUCUS 1+ /LPF; UCUL ADDED? YES
[2017-11-29] MEDS ORDERED: ZOFRAN ODT4 MG PO (13:55)
== END 2017-11-29 14:39 | disposition left against medical advice (07) ==
LOC: EME 11:03
DX: N39.0 Urinary tract infection, site not specified (principal); F31.9 Bipolar disorder, unspecified; F90.9 Attention-deficit hyperactivity disorder, unspecified type; F43.10 Post-traumatic stress disorder, unspecified; F32.9 Major depressive disorder, single episode, unspecified; F41.9 Anxiety disorder, unspecified; Z87.440 Personal history of urinary (tract) infections; Z86.79 Personal history of other diseases of the circulatory system; Z87.42 Personal history of other diseases of the female genital tract; Z98.890 Other specified postprocedural states; J30.1 Allergic rhinitis due to pollen; J30.89 Other allergic rhinitis; J30.81 Allergic rhinitis due to animal (cat) (dog) hair and dander; J30.2 Other seasonal allergic rhinitis
CPT/HCPCS: 80053; 81003; 84702; 85027; 87086; 99281; 99284

== ENCOUNTER 2017-12-03 23:24 | Emergency (ER) | payer OTHER ==
[~2017-12-03] VITALS: Ht 160 cm; Wt 87.8 kg
[2017-12-03 23:44] LABS: APPEARANCE CLEAR ((CLEAR)); BILIRUBIN NEGATIVE; BLOOD NEGATIVE; COLOR YELLOW ((YELLOW)); GLUCOSE (STRIP) NEGATIVE; KETONES NEGATIVE; LEUKOCYTES NEGATIVE; NITRITE NEGATIVE; PROTEIN (STRIP) NEGATIVE; SPECIFIC GRAVITY 1.026 (1.000-1.030); UCUL ADDED? NO; UROBILINOGEN 0.2 MG/DL (0.2-1.0)
[2017-12-04 00:10] LABS: HEMATOCRIT 33.4 % (36.0-46.0); HEMOGLOBIN 11.3 G/DL (11.9-15.5); MCH 29.5 PG (29.0-34.0); MCHC 33.8 G/DL (30.0-36.0); MCV 87.2 FL (83-99); PLATELET COUNT 257 K/uL (156-360); RBC DIS.WIDTH-SD 45.2 % (39-53); RED BLOOD COUNT 3.83 M/uL (3.80-5.20); WHITE BLOOD COUNT 5.1 K/uL (4.1-10.2)
[2017-12-04 00:20] LABS: ALBUMIN 3.7 g/dL (3.2-4.8)
[2017-12-04 00:21] LABS: CHLORIDE 105 mEq/L (99-109); POTASSIUM 3.9 mEq/L (3.7-5.4); SODIUM 138 mEq/L (136-147)
[2017-12-04 00:23] LABS: GLUCOSE 102 mg/dL (70-99); TOTAL PROTEIN 6.7 g/dL (6.4-8.3)
[2017-12-04 00:26] LABS: ALKALINE PHOSPHATASE 62 IU/L (3-129)
[2017-12-04 00:27] LABS: CREATININE 0.8 mg/dL (0.6-1.3); GFR ESTIMATE (CALCULATED) > 59 mL/min/
[2017-12-04 00:28] LABS: AST (GOT) 12 IU/L (2-34); UREA NITROGEN (BUN) 14 mg/dL (9-23)
[2017-12-04 00:30] LABS: ALT (GPT) 10 IU/L (3-49)
[2017-12-04 00:31] LABS: TOTAL BILIRUBIN 0.2 mg/dL (0.0-1.0)
[2017-12-04 00:38] LABS: QUANTITATIVE HCG 12.2 MIU/ML
[2017-12-04 01:37] VITALS: BP 125/63
== END 2017-12-04 01:37 | disposition home or self-care (01) ==
LOC: EME 23:24
DX: O99.89 Other specified diseases and conditions complicating pregnancy, childbirth and the puerperium (principal); R10.2 Pelvic and perineal pain
CPT/HCPCS: 76801; 80053; 81003; 84702; 85027; 99281; 99284

== ENCOUNTER 2017-12-07 21:13 | Emergency (ER) | payer OTHER ==
[~2017-12-07] VITALS: Ht 160 cm; Wt 86.5 kg
[2017-12-07 21:56] LABS: APPEARANCE CLEAR ((CLEAR)); BILIRUBIN NEGATIVE; BLOOD NEGATIVE; COLOR YELLOW ((YELLOW)); GLUCOSE (STRIP) NEGATIVE; KETONES NEGATIVE; LEUKOCYTES NEGATIVE; NITRITE NEGATIVE; PROTEIN (STRIP) NEGATIVE; SPECIFIC GRAVITY 1.026 (1.000-1.030); UCUL ADDED? NO
[2017-12-07 22:24] LABS: HEMATOCRIT 35.1 % (36.0-46.0); HEMOGLOBIN 11.9 G/DL (11.9-15.5); MCHC 33.9 G/DL (30.0-36.0); MCV 85.6 FL (83-99); PLATELET COUNT 269 K/uL (156-360); RBC DIS.WIDTH-CV 14.2 % (11.8-14.6); RBC DIS.WIDTH-SD 44.4 % (39-53); WHITE BLOOD COUNT 5.7 K/uL (4.1-10.2)
[2017-12-07 22:36] LABS: ALBUMIN 3.7 g/dL (3.2-4.8); CHLORIDE 104 mEq/L (99-109); POTASSIUM 3.5 mEq/L (3.7-5.4); SODIUM 136 mEq/L (136-147)
[2017-12-07 22:39] LABS: GLUCOSE 93 mg/dL (70-99); TOTAL PROTEIN 7.2 g/dL (6.4-8.3)
[2017-12-07 22:40] LABS: TOTAL BILIRUBIN 0.2 mg/dL (0.0-1.0)
[2017-12-07 22:42] LABS: ALKALINE PHOSPHATASE 64 IU/L (3-129); CREATININE 0.8 mg/dL (0.6-1.3); GFR ESTIMATE (CALCULATED) > 59 mL/min/
[2017-12-07 22:43] LABS: UREA NITROGEN (BUN) 8 mg/dL (9-23)
[2017-12-07 22:44] LABS: AST (GOT) 16 IU/L (2-34); TROP-I INTERPRETATION NEGATIVE; TROPONIN-I < 0.01 ng/mL (0.0-0.30)
[2017-12-07 22:45] LABS: ALT (GPT) 8 IU/L (3-49)
[2017-12-07 22:46] LABS: LIPASE 24 U/L (1.0-51.0)
[2017-12-07 22:55] LABS: QUANTITATIVE HCG 196.5 MIU/ML
[2017-12-07] MEDS ORDERED: PRENATAL PLUS1 EAC3 PO (23:56)
[2017-12-08 00:15] VITALS: BP 120/76
== END 2017-12-08 00:18 | disposition home or self-care (01) ==
LOC: EME 21:13
DX: O26.899 Other specified pregnancy related conditions, unspecified trimester (principal); R42 Dizziness and giddiness; R07.82 Intercostal pain; Z3A.00 Weeks of gestation of pregnancy not specified; O99.340 Other mental disorders complicating pregnancy, unspecified trimester; F32.9 Major depressive disorder, single episode, unspecified; F90.9 Attention-deficit hyperactivity disorder, unspecified type; F31.9 Bipolar disorder, unspecified; F41.9 Anxiety disorder, unspecified; Z87.440 Personal history of urinary (tract) infections
CPT/HCPCS: 80053; 81003; 83690; 84484; 84702; 85027; 93005; 99281; 99284

== ENCOUNTER 2017-12-13 15:12 | Emergency (ER) | payer OTHER ==
[~2017-12-13] VITALS: Ht 160 cm; Wt 84.8 kg
[~2017-12-13 15:12] MED LIST changes: +PRENATAL PLUS1 EAC3 PO
[2017-12-13 15:38] LABS: HEMOGLOBIN 12.8 G/DL (11.9-15.5); MCH 29.1 PG (29.0-34.0); MCHC 33.7 G/DL (30.0-36.0); MCV 86.4 FL (83-99); PLATELET COUNT 336 K/uL (156-360); RBC DIS.WIDTH-CV 14.5 % (11.8-14.6); RBC DIS.WIDTH-SD 45.5 % (39-53); WHITE BLOOD COUNT 6.8 K/uL (4.1-10.2)
[2017-12-13 15:45] LABS: ALBUMIN 4.1 g/dL (3.2-4.8)
[2017-12-13 15:46] LABS: CHLORIDE 104 mEq/L (99-109); POTASSIUM 3.7 mEq/L (3.7-5.4); SODIUM 138 mEq/L (136-147)
[2017-12-13 15:48] LABS: GLUCOSE 81 mg/dL (70-99); TOTAL PROTEIN 7.9 g/dL (6.4-8.3)
[2017-12-13 15:51] LABS: ALKALINE PHOSPHATASE 64 IU/L (3-129)
[2017-12-13 15:52] LABS: CREATININE 0.8 mg/dL (0.6-1.3); GFR ESTIMATE (CALCULATED) > 59 mL/min/
[2017-12-13 15:53] LABS: AST (GOT) 16 IU/L (2-34); TOTAL BILIRUBIN 0.3 mg/dL (0.0-1.0); UREA NITROGEN (BUN) 7 mg/dL (9-23)
[2017-12-13 15:55] LABS: ALT (GPT) 12 IU/L (3-49)
[2017-12-13 16:07] LABS: QUANTITATIVE HCG 2727.8 MIU/ML
[2017-12-13 16:43] LABS: APPEARANCE CLEAR ((CLEAR)); BILIRUBIN NEGATIVE; BLOOD NEGATIVE; COLOR YELLOW ((YELLOW)); GLUCOSE (STRIP) NEGATIVE; KETONES 20; LEUKOCYTES NEGATIVE; NITRITE NEGATIVE; PROTEIN (STRIP) 30; SPECIFIC GRAVITY 1.031 (1.000-1.030); UCUL ADDED? NO
[2017-12-13 20:26] VITALS: BP 127/71
== END 2017-12-13 20:26 | disposition home or self-care (01) ==
LOC: EME 15:12
DX: O20.0 Threatened abortion (principal); O99.511 Diseases of the respiratory system complicating pregnancy, first trimester; J02.9 Acute pharyngitis, unspecified; J45.909 Unspecified asthma, uncomplicated; O99.341 Other mental disorders complicating pregnancy, first trimester; F32.9 Major depressive disorder, single episode, unspecified; F43.10 Post-traumatic stress disorder, unspecified; F90.9 Attention-deficit hyperactivity disorder, unspecified type; Z3A.01 Less than 8 weeks gestation of pregnancy; Z87.891 Personal history of nicotine dependence
CPT/HCPCS: 76801; 80053; 81003; 84702; 85027; 87081; 87651 90; 99281; 99283

== ENCOUNTER 2017-12-18 20:21 | Emergency (ER) | payer OTHER ==
[~2017-12-18] VITALS: Ht 160 cm; Wt 84.7 kg
[2017-12-18 21:31] LABS: APPEARANCE SL.HAZY ((CLEAR)); BILIRUBIN NEGATIVE; BLOOD NEGATIVE; COLOR YELLOW ((YELLOW)); GLUCOSE (STRIP) NEGATIVE; KETONES 5; LEUKOCYTES SMALL; NITRITE NEGATIVE; PROTEIN (STRIP) 30; SPECIFIC GRAVITY 1.015 (1.000-1.030); UROBILINOGEN 0.2 MG/DL (0.2-1.0)
[2017-12-18 21:37] LABS: HEMATOCRIT 35.5 % (36.0-46.0); HEMOGLOBIN 12.1 G/DL (11.9-15.5); MCHC 34.1 G/DL (30.0-36.0); MCV 85.1 FL (83-99); PLATELET COUNT 324 K/uL (156-360); RBC DIS.WIDTH-CV 13.9 % (11.8-14.6); RBC DIS.WIDTH-SD 43.8 % (39-53); RED BLOOD COUNT 4.17 M/uL (3.80-5.20); WHITE BLOOD COUNT 6.9 K/uL (4.1-10.2)
[2017-12-18 21:49] LABS: ALBUMIN 3.8 g/dL (3.2-4.8); CHLORIDE 102 mEq/L (99-109); POTASSIUM 3.7 mEq/L (3.7-5.4); SODIUM 136 mEq/L (136-147)
[2017-12-18 21:52] LABS: GLUCOSE 103 mg/dL (70-99); TOTAL PROTEIN 7.4 g/dL (6.4-8.3)
[2017-12-18 21:54] LABS: TOTAL BILIRUBIN 0.3 mg/dL (0.0-1.0)
[2017-12-18 21:55] LABS: ALKALINE PHOSPHATASE 61 IU/L (3-129); CREATININE 0.8 mg/dL (0.6-1.3); GFR ESTIMATE (CALCULATED) > 59 mL/min/
[2017-12-18 21:56] LABS: UREA NITROGEN (BUN) 8 mg/dL (9-23)
[2017-12-18 21:57] LABS: AST (GOT) 14 IU/L (2-34)
[2017-12-18 21:58] LABS: ALT (GPT) 9 IU/L (3-49)
[2017-12-18 21:59] LABS: TROP-I INTERPRETATION NEGATIVE; TROPONIN-I < 0.01 ng/mL (0.0-0.30)
[2017-12-18 22:07] LABS: QUANTITATIVE HCG 11717.7 MIU/ML
[2017-12-18 22:08] LABS: BACTERIA 2+ /HPF; EPITHELIAL CELLS 1+ /HPF; MUCUS NONE SEEN /LPF; RED BLOOD CELLS 0-5 /HPF (0-5); UCUL ADDED? YES; WHITE BLOOD CELLS 20-30 /HPF (0-5)
[2017-12-18 22:50] LABS: THYROTROPIN (TSH) 1.3 MIU/L (0.4-5.5)
[2017-12-18] MEDS ORDERED: KEFLEX500 MG PO (22:59)
[2017-12-18 23:16] VITALS: BP 109/54
== END 2017-12-18 23:17 | disposition home or self-care (01) ==
LOC: EME 20:21
PROVIDERS: Physician Assistant
DX: O99.89 Other specified diseases and conditions complicating pregnancy, childbirth and the puerperium (principal); R07.9 Chest pain, unspecified; O23.41 Unspecified infection of urinary tract in pregnancy, first trimester; M79.602 Pain in left arm; J02.9 Acute pharyngitis, unspecified; Z3A.01 Less than 8 weeks gestation of pregnancy; Z87.891 Personal history of nicotine dependence
CPT/HCPCS: 71046; 80053; 81003; 84443; 84484; 84702; 85027; 87086; 93005; 99281; 99284

== ENCOUNTER 2017-12-28 19:12 | Emergency (ER) | payer OTHER ==
[~2017-12-28] VITALS: Ht 160 cm; Wt 83.7 kg
[2017-12-28 19:19] VITALS: BP 115/75
[2017-12-28 19:56] LABS: APPEARANCE CLEAR ((CLEAR)); BILIRUBIN NEGATIVE; BLOOD NEGATIVE; COLOR YELLOW ((YELLOW)); GLUCOSE (STRIP) NEGATIVE; KETONES NEGATIVE; LEUKOCYTES SMALL; NITRITE NEGATIVE; PROTEIN (STRIP) NEGATIVE; SPECIFIC GRAVITY 1.014 (1.000-1.030)
[2017-12-28 20:28] LABS: HEMATOCRIT 37.7 % (36.0-46.0); HEMOGLOBIN 12.7 G/DL (11.9-15.5); MCH 28.7 PG (29.0-34.0); MCHC 33.7 G/DL (30.0-36.0); MCV 85.1 FL (83-99); RBC DIS.WIDTH-CV 13.6 % (11.8-14.6); RBC DIS.WIDTH-SD 42.6 % (39-53); RED BLOOD COUNT 4.43 M/uL (3.80-5.20); WHITE BLOOD COUNT 5.5 K/uL (4.1-10.2)
[2017-12-28 20:29] LABS: CHLORIDE 102 mEq/L (99-109); SODIUM 135 mEq/L (136-147)
[2017-12-28 20:31] LABS: GLUCOSE 109 mg/dL (70-99); TOTAL PROTEIN 7.8 g/dL (6.4-8.3)
[2017-12-28 20:33] LABS: TOTAL BILIRUBIN 0.2 mg/dL (0.0-1.0)
[2017-12-28 20:34] LABS: ALKALINE PHOSPHATASE 59 IU/L (3-129)
[2017-12-28 20:35] LABS: BACTERIA 2+ /HPF; EPITHELIAL CELLS 1+ /HPF; MUCUS NONE SEEN /LPF; RED BLOOD CELLS 0-5 /HPF (0-5); UCUL ADDED? YES
[2017-12-28 20:35] LABS: CREATININE 0.7 mg/dL (0.6-1.3); GFR ESTIMATE (CALCULATED) > 59 mL/min/
[2017-12-28 20:36] LABS: AST (GOT) 14 IU/L (2-34); UREA NITROGEN (BUN) 6 mg/dL (9-23)
[2017-12-28 20:38] LABS: ALT (GPT) 6 IU/L (3-49)
[2017-12-28 21:04] LABS: QUANTITATIVE HCG 87364.9 MIU/ML
[2017-12-28 21:14] LABS: PLAT.SUFFICIENCY ADEQUATE; PLATELET CLUMPS PRESENT - PLATELET COUNT APPEARS ADEQUATE; PLATELET COUNT UNABLE TO REPORT K/uL (156-360)
== END 2017-12-28 22:32 | disposition left against medical advice (07) ==
LOC: EME 19:12
DX: F41.9 Anxiety disorder, unspecified (principal); R10.9 Unspecified abdominal pain; Z53.21 Procedure and treatment not carried out due to patient leaving prior to being seen by health care provider
CPT/HCPCS: 80053; 81003; 84702; 85027; 87077; 87086